=== PATIENT | female | born 1990 | race Caucasian/White ===

== ENCOUNTER → 2020-12-11 | Outpatient (CLI) | payer BC ==
--- NOTE | 2020-12-12 08:32 | CT ---
EXAMINATION TYPE: CT iac wo con DATE OF EXAM: 12/11/2020 COMPARISON: None HISTORY: Possible right cholesteatoma CT DLP: 142.7mGycm Automated exposure control for dose reduction was used. FINDINGS: The external auditory canals are patent bilaterally. Mastoid air cells show no evidence of abnormal opacification bilaterally. The middle ear ossicles are symmetric and unremarkable. There is no evidence of suspicious surrounding soft tissue density to suggest cholesteatoma. The scutum is preserved bilaterally. The cochlea and the semicircular canals are symmetric and unremarkable. Ves tibular aqueduct and internal carotid canal appear unremarkable. Temporomandibular joints are mainta ined bilaterally. IMPRESSION: No significant abnormality seen to account for patient's symptoms.
== END ==
LOC: RADCTMAIN 16:23
PROVIDERS: ATTEND Otolaryngology
DX: H93.19 Tinnitus, unspecified ear (principal)
CPT/HCPCS: 70480

== ENCOUNTER 2023-02-04 20:11 | Outpatient (CLI) | payer BC ==
[2023-02-04 21:12] LABS: Appearance,Urine Clear (Clear); Bilirubin,Urine Negative (Negative); Blood,Urine Negative (Negative); Glucose,Urine (UA) Negative (Negative); Ketones,Urine 2+ (Negative); Leukocyte Esterase,Urine Negative (Negative); Nitrite,Urine Negative (Negative); Protein,Urine Trace (Negative); Specific Gravity,Urine 1.023 (1.001-1.035); Urobilinogen,Urine <2.0 mg/dL (<2.0)
[2023-02-04 21:17] LABS: Color,Urine Yellow
[2023-02-04 22:52] VITALS: BP 128/66; PULSE 92; RESP 16; TEMP 97
--- NOTE | 2023-03-05 19:12 | P.MSEPDOC ---
Presenting Problems - Arrival Data Date of Arrival on Unit: 02/04/23 Time of Arrival on Unit: 20:11 Mode of Transport: Ambulatory - Complaint OB-Reason for Admission/Chief Complaint: Pain Comment: Patient presents to [facility] with complaint of lower right sided abdominal pain. that has been going on for two days and 1 episode of emesis prior to coming to triage. patient states it was a scant amount of bile. Medical History - Information : 1 Para: 0 Term: 0 : 0 Abortions: Spontaneous or Elective: 0 Number of Living Children: 0 - Gestational Age Gestational Age by KOREY (wks/days): 34 Weeks and 1 Days Review of Systems - Review of Systems Constitutional: No problems Breast: No problems ENT: No problems Cardiovascular: No problems Respiratory: No problems Gastrointestinal: No problems Genitourinary: No problems Musculoskeletal: No problems Neurological: No problems Skin: No problems Vital Signs - Temperature Temperature: 97.0 F Temperature Source: Oral - Pulse Right Brachial Pulse Rate: 92 Pulse Assessment Method: Automatic Cuff - Respirations Respiratory Rate: 16 Oxygen Delivery Method: Room Air - Blood Pressure Right Arm Blood Pressure: 128/66 Blood Pressure Mean: 86 Blood Pressure Source: Automatic Cuff Medical Screen Scoring - Assessment - Baby A Baseline FHR: 125 Heart Rate - NICHD Category: Category I (Normal) NST: Reactive Physician Notification - Physician Notified Physician Notified Date: 02/04/23 Physician Notified Time: 20:46 Physician: Barbara Gaytan - Notification Comment Comment: Dr. Kevin called with report for pt that presents to triage with right sided. lower abdominal pain that has been going on for 2 days and 1 episode of emesis. Pt. abdomen soft non tender, nst reactive, no contractions per palpation or toco. Pain. appears to be more ligament pain, pt has had minimal oral hydration, has not tried any. pain relief techniques at home. Orders recieved to send a u/a, if negative, pt may be. discharge home, rn to educate patient on at home comfort measures. 2128 U/A results reviewed patient to be discharged Maternal Triage Index - Maternal Triage Index Presenting for scheduled procedure w/no complaint: No - Stat/Priority 1 Stat Priority 1: No - Urgent/Priority 2 Urgent Priority 2: No - Prompt/Priority 3 Prompt Priority 3: No - Non-Urgent/Priority 4 Non-Urgent Priority 4: Yes Criteria Met for Priority 4: discomfort Disposition - Disposition OB Disposition: Discharge to home Discharge Date: 02/04/23 Discharge Time: 21:22 I agree with the RN Medical Screening Exam: Yes Case reviewed; plan agreed upon as documented in EMR&OBIX.: Yes Diagnosis: RELATED CONDITIONS, UNSPECIFIED, THIRD TRIMESTER
== END 2023-02-04 21:22 ==
LOC: FBPOP 20:11
PROVIDERS: ATTEND Obstetrics & Gynecology Obstetrics
DX: O26.893 Other specified pregnancy related conditions, third trimester (principal); R52 Pain, unspecified; Z3A.34 34 weeks gestation of pregnancy
CPT/HCPCS: 59025; 81003; 99213

== ENCOUNTER 2023-03-10 17:03 | Inpatient (IN) | payer BC ==
[2023-03-10] MEDS ORDERED: TRANEXAMIC 1,000 MG/100ML-NACL 1,000 MG in EMPTY BAG 1 BAG IV PRN (17:04)
[2023-03-10] MEDS ORDERED: LIDOCAINE 0.5% (PF) 5 MG/ML (50 ML SDV) SQ PRN (17:04)
[2023-03-10] MEDS ORDERED: DINOPROSTONE 10 MG INSERT.ER VAGINAL ONE (17:04)
[2023-03-10] MEDS ORDERED: OXYTOCIN 10 UNIT/ML 1 ML VIAL IM PRN (17:04)
[2023-03-10] MEDS ORDERED: miSOPROStoL 200 MCG TAB PO PRN (17:04)
[2023-03-10] MEDS ORDERED: TERBUTALINE 1 MG/ML VIAL SQ PRN (17:04)
[2023-03-10] MEDS ORDERED: CARBOPROST TROMETHAMINE 250 MCG/ML 1 ML AMP IM PRN (17:04)
[2023-03-10] MEDS ORDERED: METHYLERGONOVINE 0.2 MG/ML 1 ML AMP IM PRN (17:04)
[2023-03-10] MEDS ORDERED: OXYTOCIN 30 UNITS/500 ML NS 30 UNIT in SALINE 1 500ML.BAG IV SCH (17:15)
[2023-03-10] MEDS ORDERED: NALBUPHINE 10 MG/ML (10 ML MDV) IV PRN (18:02)
[2023-03-10 18:07] LABS: Basophils % (A) 0 %; Eosinophils # (A) 0.2 k/uL (0-0.7); Eosinophils % (A) 2 %; HCT 37.2 % (34.0-46.0); HGB 12.3 gm/dL (11.4-16.0); Lymphocytes % (A) 20 %; MCH 29.1 pg (25.0-35.0); MCHC 33.1 g/dL (31.0-37.0); MCV 87.9 fL (80.0-100.0); Mean Platelet Volume 10.2; Monocytes # (A) 0.5 k/uL (0-1.0); Monocytes % (A) 5 %; Neutrophils # (A) 7.2 k/uL (1.3-7.7); Neutrophils % (A) 73 %; Platelet Count 213 k/uL (150-450); RBC 4.23 m/uL (3.80-5.40); RDW 14.3 % (11.5-15.5)
[2023-03-11] MEDS: LACTATED RINGERS 1,000 ML IV SCH ×6 (06:42→20:45)
[2023-03-11] MEDS ORDERED: CITRIC ACID-SODIUM CITRATE 15 ML CUP PO ONE ×2 (16:52→16:58)
[2023-03-11] MEDS ORDERED: miSOPROStoL 200 MCG TAB PO PRN ×2 (16:52→16:58)
[2023-03-11] MEDS ORDERED: METHYLERGONOVINE 0.2 MG/ML 1 ML AMP IM PRN ×2 (16:52→16:58)
[2023-03-11] MEDS ORDERED: TRANEXAMIC 1,000 MG/100ML-NACL 1,000 MG in EMPTY BAG 1 BAG IV PRN ×2 (16:52→16:58)
[2023-03-11] MEDS ORDERED: CARBOPROST TROMETHAMINE 250 MCG/ML 1 ML AMP IM PRN ×2 (16:52→16:58)
[2023-03-11] MEDS ORDERED: OXYTOCIN 10 UNIT/ML 1 ML VIAL IM PRN ×2 (16:52→16:58)
[2023-03-11] MEDS ORDERED: ceFAZolin 3 GM in SODIUM CHLORIDE 0.9% 100 ML IVPB ONE (16:58)
[2023-03-11] MEDS ORDERED: diphenhydrAMINE 50 MG/ML 1 ML VIAL ONE (17:00)
[2023-03-11] MEDS ORDERED: NALBUPHINE 10 MG/ML (10 ML MDV) ONE (17:00)
[2023-03-11] MEDS ORDERED: ONDANSETRON 4 MG/2 ML VIAL ONE (17:00)
[2023-03-11] MEDS ORDERED: OXYTOCIN 30 UNITS/500 ML NS BAG IV ONE (17:00)
[2023-03-11] MEDS ORDERED: PHENYLEPHRINE-0.9% NACL SYG 1,000 MCG/10 ML SYRINGE ONE (17:00)
[2023-03-11] MEDS ORDERED: OXYTOCIN 30 UNITS/500 ML NS 30 UNIT in SALINE 1 500ML.BAG IV SCH (17:00)
[2023-03-11] MEDS ORDERED: OXYTOCIN 10 UNIT/ML 1 ML VIAL ONE (17:00)
[2023-03-11] MEDS ORDERED: MORPHINE SULFATE (PF) 0.3 MG/0.3 ML SYR ONE (17:00)
--- NOTE | 2023-03-11 17:59 | P.OP ---
Date of Procedure: 03/11/23 Preoperative Diagnosis: IUP at 39 weeks, borderline low amniotic fluid index, maternal request for primary secondary to arrest of descent and dilation Postoperative Diagnosis: same Procedure(s) Performed: Primary low transverse section Anesthesia: spinal Surgeon: Radha Kevin Stevedoring Supervisor #1: Clark Huerta Estimated Blood Loss (ml): 375 IV fluids (ml): 600 Urine output (ml): 100 Pathology: other (Placenta) Condition: stable Disposition: observation Indications for Procedure: 32-year-old 1 para 0 that presented to labor and delivery last evening at 39 weeks of gestation for Cervidil induction of labor secondary to borderline low amniotic fluid index noted in the office. Patient was admitted to labor and delivery and noted minimal cervical telephone exchange operator the evening. Patient was noted to be 1/70 in the morning amniotomy is performed and scant clear fluid was obtained. Patient was begun on Pitocin for augmentation of labor. Patient made no change throughout the day. After approximately 8 hours of no change patient elected primary . Patient was counseled on risks of versus continuing. Concerns for malpresentation in occiput posterior presentation were discussed. Patient stated she wished to proceed with primary . Operative Findings: Normal uterus tubes and ovaries were appreciated. Viable male delivered at 1728, weight of 6 lbs. 9 oz., Apgars of 9 and 9 at one and 5 minutes respectively. Description of Procedure: The patient was prepped and draped in the usual fashion after spinal anesthesia was administered by the anesthesia department. A Pfannenstiel incision was made and extended of the abdominal cavity without difficulty. The bladder peritoneum was elevated and incised and reflected distally. A 2 cm incision was made in the transverse plane of the lower uterine segment to enter the uterus at which time clear fluid was noted. The incision was extended in both directions using the bandage scissors. The head was encountered within the field and delivered up and through the incision where the nose and mouth were thoroughly suctioned. Remainder of the infant was delivered onto the surgical field where the cord was doubly clamped, cut, and the was passed for resuscitative measures with weight and Apgars as noted above. The placenta was delivered manually, intact, and was grossly normal with a grossly normal three-vessel cord. The uterus was exteriorized and the interior cavity of the uterus swept of any remaining placental and membranous fragments with a laparotomy sponge. The margins of the incision were grasped with Allis clamps and the incision closed in 2 layers. First layer was a running locking layer of 0 Vicryl from margin to margin followed by a second layer of imbricating 0 Vicryl from margin to margin. Any small points of bleeding were then made hemostatic with the Bovie. Once hemostasis was achieved, the posterior cul-de-sac was suctioned with a guard and the uterine and ovarian findings are as noted above. The uterus was replaced within the abdominal cavity and the gutters swept of any remaining blood fluid or clot. The incision was again reexamined and hemostasis was noted to be excellent. Any small point of bleeding were made hemostatic with the Bovie. Once hemostasis was achieved the parietal peritoneum was loosely reapproximated. The layer of muscles were examined and made hemostatic with the Bovie. Attention was then turned to the fascia which was closed with 2 running stitches of 0 Vicryl proceeding from the lateral margins to the midpoint. The subcutaneous tissues were irrigated, made hemostatic with the Bovie, and reapproximated with a running stitch of 30 Vicryl. The skin was reapproximated with 4-0 Vicryl. Estimated blood loss for the case was approximately 345 mL. All sponge instrument and needle counts are correct. There were no complications. The patient tolerated the procedure well and proceeded to the recovery room in stable condition. Both mother and are resting comfortably in recovery.
--- NOTE | 2023-03-11 18:00 | P.HPOB ---
History of Present Illness H&P Date: 03/10/23 Chief Complaint: IUP at 39-0/7 weeks, low GAURANG This is a 32-year-old 1 para 0 at 39 0/7 weeks that presents to labor and delivery from the office after amniotic fluid index was noted to be on the low end of normal at 7. Patient has been receiving routine care which has been essentially uncomplicated. Patient has an unfavorable cervix of fingertip/70/-3 station vertex presentation was noted on ultrasound today. Patient does note good movement and had reassuring testing the office today. On bloodwork this patient is a blood type of A+, rubella status immune, hep B surface antigen negative, HIV negative, RPR is nonreactive, group beta s trep cultures are negative. Review of Systems Constitutional: Denies chills, Denies fatigue, Denies fever Ears, nose, mouth and throat: Denies headache Cardiovascular: Reports leg edema Respiratory: Denies dyspnea Gastrointestinal: Denies constipation, Denies diarrhea, Denies nausea, Denies vomiting Genitourinary: Reports Past Medical History Past Medical History: No Reported History History of Any Multi-Drug Resistant Organisms: None Reported Past Surgical History: Orthopedic Surgery Additional Past Surgical History / Comment(s): knee x2 Past Anesthesia/Blood Transfusion Reactions: Previous Problems w/ Anesthesia Additional Past Anesthesia/Blood Transfusion Reaction / Comment(s): pt states she was very aggresive when she woke from anesthesia Past Psychological History: Anxiety, Depression Smoking Status: Never smoker Past Alcohol Use History: None Reported Past Drug Use History: None Reported - Past Family History Father Family Medical History: COPD, Hypertension Brother(s) Family Medical History: Seizure Disorder Medications and Allergies Home Medications Medication Instructions Recorded Confirmed Type Famotidine [Pepcid] 20 mg PO DAILY 02/04/23 03/10/23 History Vit No.179/Iron/Folic 1 tab PO DAILY 02/04/23 03/10/23 History [ Tablet] Allergies Allergy/AdvReac Type Severity Reaction Status Date / Time No Known Allergies Allergy Verified 02/04/23 20:23 Exam Osteopathic Statement: *. No significant issues noted on an osteopathic structural exam other than those noted in the History and Physical/Consult. 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 heart tones are noted to be category 1 and she is not makayla. Results Result Diagrams: 03/10/23 17:47 Assessment and Plan (1) 39 weeks gestation of Current Visit: Yes Status: Acute Code(s): Z3A.39 - 39 WEEKS GESTATION OF SNOMED Code(s): 18589587 (2) GAURANG (amniotic fluid index) borderline low Current Visit: Yes Status: Acute Code(s): O28.8 - OTHER ABNORMAL FINDINGS ON SCREENING OF MOTHER SNOMED Code(s): 93402413 Plan: 32-year-old at 39-0/7 weeks that presents for induction of labor secondary to borderline low GAURANG of 7. Patient is admitted and Cervidil is placed without difficulty. Patient is offered options for analgesia including Stadol, nitrous, epidural. She will consider. Plan Hep-Lock overnight, continuous monitoring.
[2023-03-11] MEDS ORDERED: NALOXONE 0.4 MG/ML 1 ML VIAL IV PRN (18:15)
[2023-03-11] MEDS ORDERED: METOCLOPRAMIDE 5 MG/ML 2 ML VIAL IVP PRN (18:15)
[2023-03-11] MEDS ORDERED: SIMETHICONE 80 MG CHEWABLE PO PRN (18:15)
[2023-03-11] MEDS ORDERED: diphenhydrAMINE 25 MG CAP PO PRN (18:15)
[2023-03-11] MEDS ORDERED: diphenhydrAMINE 50 MG/ML 1 ML VIAL IVP PRN ×2 (18:15)
[2023-03-11] MEDS ORDERED: diphenhydrAMINE 50 MG CAP PO PRN (18:15)
[2023-03-11] MEDS ORDERED: ONDANSETRON 4 MG/2 ML VIAL IVP PRN (18:15)
[2023-03-11] MEDS ORDERED: ZOLPIDEM 5 MG TAB PO PRN (18:15)
[2023-03-11] MEDS: ACETAMINOPHEN IV (For NPO) 1,000 MG in EMPTY BAG 1 BAG IVPB SCH (20:45)
[2023-03-11] MEDS: SENNOSIDES-DOCUSATE SODIUM 1 EACH TAB PO SCH (20:46)
[2023-03-11] MEDS: ACETAMINOPHEN TAB 500 MG TAB PO SCH (20:53)
[2023-03-12] MEDS: IBUPROFEN 600 MG TAB PO SCH ×5 (00:26→23:58)
[2023-03-12] MEDS: IBUPROFEN IV 800 MG in SODIUM CHLORIDE 0.9% 250 ML IV SCH ×2 (00:42→06:40)
[2023-03-12] MEDS: ACETAMINOPHEN TAB 500 MG TAB PO SCH ×4 (03:04→21:45)
[2023-03-12] MEDS: ACETAMINOPHEN IV (For NPO) 1,000 MG in EMPTY BAG 1 BAG IVPB SCH (03:09)
[2023-03-12 06:18] LABS: Basophils % (A) 0 %; Eosinophils # (A) 0.1 k/uL (0-0.7); Eosinophils % (A) 1 %; HCT 34.3 % (34.0-46.0); HGB 10.8 gm/dL (11.4-16.0); Lymphocytes # (A) 2.2 k/uL (1.0-4.8); Lymphocytes % (A) 18 %; MCH 27.4 pg (25.0-35.0); MCHC 31.5 g/dL (31.0-37.0); MCV 87.2 fL (80.0-100.0); Mean Platelet Volume 9.5; Monocytes # (A) 0.7 k/uL (0-1.0); Monocytes % (A) 6 %; Neutrophils # (A) 9.2 k/uL (1.3-7.7); Neutrophils % (A) 74 %; Platelet Count 184 k/uL (150-450); RBC 3.93 m/uL (3.80-5.40); RDW 14.7 % (11.5-15.5); WBC 12.4 k/uL (3.8-10.6)
--- NOTE | 2023-03-12 08:25 | P.PN ---
Progress Note - Text Progress Note Date: 03/12/23 (5249) Anesthesia Postop day 1 Subjective: Status Post section with Duramorph. Patient seen and examined. Doing well without complaint. VAS 2 out of 10. No nausea or vomiting. Mild pruritus tolerable.. Afebrile. Gross lower extremity strength intact. Without apparent anesthetic complications. Objective: Vital signs reviewed Heart: Regular Rate Lungs: Good chest excursion Abdomen: Appears nondistended Assessment: Status post with Duramorph postop day 1 Plan: Continue current care with your medical management. Anticipated and the Duramorph section around time today. You may see increased pain needs around this time.
[2023-03-12] MEDS ORDERED: PRENATAL VIT-IRON-FOLIC ACID 1 EACH TABLET PO SCH (09:00)
[2023-03-12] MEDS: SENNOSIDES-DOCUSATE SODIUM 1 EACH TAB PO SCH ×2 (10:39→19:50)
[2023-03-12] MEDS: LACTATED RINGERS 1,000 ML IV SCH (10:40)
--- NOTE | 2023-03-12 13:09 | P.PNOBGPC ---
Subjective - Subjective Principal diagnosis: Postop day 1 low transverse section Interval history: Patient is doing well this morning, she is involuting and voiding without difficulty, she denies nausea or vomiting. She states her pain is well- controlled. Her lochia is minimal. Patient reports: Reports appetite normal, Reports voiding normally, Reports pain well controlled, Reports ambulating normally [place]: doing well Objective - Vital Signs Latest vital signs: Vital Signs Temp Pulse Resp BP Pulse Ox 03/12/23 09:30 98.3 F 64 16 104/71 97 03/12/23 04:00 98.3 F 64 16 122/60 98 03/12/23 00:00 98.1 F 56 L 16 118/77 97 03/11/23 20:00 96.8 F L 62 16 125/64 98 03/11/23 19:30 66 16 134/68 97 03/11/23 19:00 97 F L 71 16 120/57 97 03/11/23 18:45 56 L 14 122/58 98 03/11/23 18:30 57 L 16 123/58 95 03/11/23 18:15 82 16 123/58 97 03/11/23 18:00 97.0 F L 71 17 124/57 98 Intake and Output 03/11/23 03/12/23 03/12/23 22:59 06:59 14:59 Intake Total 22.6 200 Output Total 735 400 800 Balance -712.4 -200 -800 Intake: Intake, IV Titration 22.6 Amount Oxytocin 30 Units/500 ml 22.6 Ns 30 unit In Saline 1 500ml.bag @ Per Protocol IV .Q0M [facility] Rx#:[id number] Oral 200 Output: Urine 300 400 800 Output, Quantitative 435 Blood Loss Other: Voiding Method Indwelling Catheter Indwelling Catheter - Exam Extremities: Present: normal, edema Abdomen: Present: normal appearance, soft Incision: Present: normal, dry, intact Uterus: Present: normal, firm - Labs Labs: Abnormal Lab Results - Last 24 Hours (Table) 03/12/23 Range/Units 05:14 WBC 12.4 H (3.8-10.6) k/uL Hgb 10.8 L (11.4-16.0) gm/dL Neutrophils # 9.2 H (1.3-7.7) k/uL Assessment and Plan (1) 39 weeks gestation of Current Visit: Yes Status: Acute Code(s): Z3A.39 - 39 WEEKS GESTATION OF SNOMED Code(s): 44493409 (2) GAURANG (amniotic fluid index) borderline low Current Visit: Yes Status: Acute Code(s): O28.8 - OTHER ABNORMAL FINDINGS ON SCREENING OF MOTHER SNOMED Code(s): 59565070 Plan: 32-year-old G1 now P1 status post primary section for arrest of descent and dilation and maternal request. Patient is doing well postoperatively will continue routine postoperative care and anticipate discharge home tomorrow.
[2023-03-13 01:19] VITALS: RESP 16
[2023-03-13] MEDS: ACETAMINOPHEN TAB 500 MG TAB PO SCH (03:51)
[2023-03-13] MEDS: IBUPROFEN 600 MG TAB PO SCH (06:03)
[2023-03-13 09:12] VITALS: BP 109/73; PULSE 84; TEMP 98.9
--- NOTE | 2023-03-13 11:40 | P.DS ---
Providers Date of admission: 03/10/23 17:03 Expected date of discharge: 03/13/23 Attending physician: Radha Kevin Primary care physician: Stated None - Discharge Diagnosis(es) (1) 39 weeks gestation of Current Visit: Yes Status: Acute (2) GAURANG (amniotic fluid index) borderline low Current Visit: Yes Status: Acute (3) Arrest of dilation, delivered, current hospitalization Current Visit: Yes Status: Acute (4) S/P section Current Visit: Yes Status: Acute Hospital Course: This is a 32-year-old 1 now para 1 that presented to labor and delivery on 03/10 for induction of labor secondary to borderline low amniotic fluid index. Patient had a Cervidil placed and was noted to be fingertip dilated. Patient noted some contractions in the evening in the morning was noted to be 1 cm dilated. Amniotomy was performed after Cervidil had been removed and clear fluid was obtained. Patient began Pitocin for augmentation of labor. Patient was monitored through the day with good contractions and no cervical change was appreciated throughout the day. heart tones were noted to be category 1 throughout labor. Concerns for malpresentation/occiput posterior presentation were discussed with patient. Patient elected primary . Patient was taken back to the operating suite where a primary was performed that difficulty. For full details on the please see the operative report. Patient delivered a viable male at 1728, weight of 6 lbs. 9 oz., Apgars of 9 and 9 at one and 5 minutes respectively. Patient's course is uneventful uneventful. On this day #2 she is ambulating and voiding without difficulty. She is tolerating a regular diet without nausea or v omiting. She states her pain is well-controlled. She denies concerns. She was like discharge home today. Patient Condition at Discharge: Good Plan - Discharge Summary Discharge Rx Participant: Yes New Discharge Prescriptions: No Action Famotidine [Pepcid] 20 mg PO DAILY Vit No.179/Iron/Folic [ Tablet] 1 tab PO DAILY Discharge Medication List Famotidine [Pepcid] 20 mg PO DAILY 02/04/23 [History] Vit No.179/Iron/Folic [ Tablet] 1 tab PO DAILY 02/04/23 [History] Follow up Appointment(s)/Referral(s): Radha Kevin DO [Doctor of Osteopathic Medicine] - 2 Weeks Patient Instructions/Handouts: (DC) Activity/Diet/Wound Care/Special Instructions: No tub baths or intercourse until 6 weeks post . Postoperative care of incision is discussed. [id number] ibuprofen 600 mg every 6 hours as needed for pain. Patient is to call the office to make a routine postoperative appointment in 2 weeks. Should she have any concerns presents appointment she is urged to call the office. Discharge Disposition: HOME SELF-CARE
== END 2023-03-13 13:30 | disposition home or self-care (01) | DRG 788 ==
LOC: 4FBP 17:03
PROVIDERS: ADMIT Obstetrics & Gynecology Obstetrics; ATTEND Obstetrics & Gynecology Obstetrics
PROC: 10907ZC Drainage of Amniotic Fluid, Therapeutic from Products of Conception, Via Natural or Artificial Opening (ICD-10-PCS; 2023-03-11)
PROC: 3E0P7VZ Introduction of Hormone into Female Reproductive, Via Natural or Artificial Opening (ICD-10-PCS; 2023-03-11)
PROC: 3E033VJ Introduction of Other Hormone into Peripheral Vein, Percutaneous Approach (ICD-10-PCS; 2023-03-11)
PROC: 10D00Z1 Extraction of Products of Conception, Low, Open Approach (ICD-10-PCS; principal; 2023-03-11 06:00)
DX: O62.0 Primary inadequate contractions (principal); O62.1 Secondary uterine inertia; L29.9 Pruritus, unspecified; F41.9 Anxiety disorder, unspecified; O99.344 Other mental disorders complicating childbirth; Z37.0 Single live birth; Z3A.39 39 weeks gestation of pregnancy; Z82.0 Family history of epilepsy and other diseases of the nervous system; Z82.49 Family history of ischemic heart disease and other diseases of the circulatory system; Z82.5 Family history of asthma and other chronic lower respiratory diseases
CPT/HCPCS: 85025; 86850; 86900; 86901

== ENCOUNTER 2024-12-05 08:00 | Inpatient (IN) | payer BC, OTHER ==
[2024-12-05] MEDS ORDERED: CARBOPROST TROMETHAMINE 250 MCG/ML 1 ML AMP IM PRN (14:38)
[2024-12-05] MEDS ORDERED: METHYLERGONOVINE 0.2 MG/ML 1 ML AMP IM PRN (14:38)
[2024-12-05] MEDS ORDERED: OXYTOCIN 10 UNIT/ML 1 ML VIAL IM PRN (14:38)
[2024-12-05] MEDS ORDERED: TRANEXAMIC 1,000 MG/100ML-NACL 1,000 MG in EMPTY BAG 1 BAG IV PRN (14:38)
[2024-12-05] MEDS ORDERED: miSOPROStoL 200 MCG TAB PO PRN (14:38)
[2024-12-05 15:12] LABS: Basophils % (A) 0 %; Eosinophils # (A) 0.1 k/uL (0-0.7); Eosinophils % (A) 1 %; HCT 36.5 % (34.0-46.0); Lymphocytes # (A) 2.3 k/uL (1.0-4.8); Lymphocytes % (A) 20 %; MCH 27.6 pg (25.0-35.0); MCHC 32.9 g/dL (31.0-37.0); MCV 84.1 fL (80.0-100.0); Mean Platelet Volume 8.5; Monocytes # (A) 0.6 k/uL (0-1.0); Monocytes % (A) 5 %; Neutrophils # (A) 8.4 k/uL (1.3-7.7); Neutrophils % (A) 73 %; Platelet Count 227 k/uL (150-450); RBC 4.34 m/uL (3.80-5.40); RDW 14.3 % (11.5-15.5); WBC 11.6 k/uL (3.8-10.6)
[2024-12-05] MEDS: LACTATED RINGERS 1,000 ML IV ONE (15:35)
[2024-12-05] MEDS: CITRIC ACID-SODIUM CITRATE 15 ML CUP PO ONE (15:36)
[2024-12-05] MEDS: ceFAZolin 3 GM in SODIUM CHLORIDE 0.9% 100 ML IVPB ONE (15:37)
[2024-12-05] MEDS ORDERED: MORPHINE SULFATE (PF) 0.3 MG/0.3 ML SYR ONE (16:20)
[2024-12-05] MEDS ORDERED: ONDANSETRON 4 MG/2 ML VIAL ONE (16:20)
[2024-12-05] MEDS ORDERED: PHENYLEPHRINE-0.9% NACL SYG 1,000 MCG/10 ML SYRINGE ONE (16:20)
[2024-12-05] MEDS ORDERED: OXYTOCIN 30 UNITS/500 ML NS BAG IV ONE (16:20)
[2024-12-05] MEDS ORDERED: NALBUPHINE (ANES) 10 MG/ML - 1 ML AMP ONE (16:20)
[2024-12-05] MEDS ORDERED: METOCLOPRAMIDE 5 MG/ML 2 ML VIAL IVP PRN (17:09)
[2024-12-05] MEDS ORDERED: ONDANSETRON 4 MG/2 ML VIAL IVP PRN (17:09)
[2024-12-05] MEDS ORDERED: diphenhydrAMINE 50 MG/ML 1 ML VIAL IVP PRN (17:09)
[2024-12-05] MEDS ORDERED: ZOLPIDEM 5 MG TAB PO PRN (17:09)
[2024-12-05] MEDS ORDERED: SIMETHICONE 80 MG CHEWABLE PO PRN (17:09)
[2024-12-05] MEDS ORDERED: NALOXONE 0.4 MG/ML 1 ML VIAL IV PRN (17:09)
[2024-12-05] MEDS ORDERED: diphenhydrAMINE 25 MG CAP PO PRN (17:09)
--- NOTE | 2024-12-05 17:15 | P.OP ---
Date of Procedure: 12/05/24 Preoperative Diagnosis: IUP @ 39 2/7 weeks h/o section x1 desires Repeat Postoperative Diagnosis: same Procedure(s) Performed: Elective repeat section Anesthesia: spinal Surgeon: Radha Kevin Motor Racer #1: Clark Huerta Estimated Blood Loss (ml): 306 IV fluids (ml): 1,500 Urine output (ml): 200 (clear yellow) Pathology: none sent Condition: stable Disposition: observation Indications for Procedure: History of section x 1, desires repeat Operative Findings: Viable male infant delivered at 1640, weight of 6 pounds 9 ounces, Apgars of 9 and 9 at 1 and 5 minutes respectively Description of Procedure: The patient was prepped and draped in the usual fashion after spinal anesthesia was administered by the anesthesia department. A Pfannenstiel incision was made and extended of the abdominal cavity without difficulty. The bladder peritoneum was elevated and incised and reflected distally. A 2 cm incision was made in the transverse plane of the lower uterine segment to enter the uterus at which time clear fluid was noted. The incision was extended in both directions using the bandage scissors. The head was encountered within the field and delivered up and through the incision where the nose and mouth were thoroughly suctioned. Remainder of the infant was delivered onto the surgical field where the cord was doubly clamped, cut, and the was passed for resuscitative measures with weight and Apgars as noted above. The placenta was delivered manually, intact, and was grossly normal with a grossly normal three-vessel cord. The uterus was exteriorized and the interior cavity of the uterus swept of any remaining placental and membranous fragments with a laparotomy sponge. The margins of the incision were grasped with Allis clamps and the incision closed in 2 layers. First layer was a running locking layer of 0 vicryl from margin to margin followed by a second layer of imbricating 0 vicryl from margin to margin. Any small points of bleeding were then made hemostatic with the Bovie. Once hemostasis was achieved, the posterior cul-de-sac was suctioned with a guard and the uterine and ovarian findings are as noted above. The uterus was replaced within the abdominal cavity and the gutters swept of any remaining blood fluid or clot. The incision was again reexamined and hemostasis was noted to be excellent. Any small point of bleeding were made hemostatic with the Bovie. Once hemostasis was achieved the parietal peritoneum was loosely reapproximated. The layer of muscles were examined and made hemostatic with the Bovie. Attention was then turned to the fascia which was closed with 2 running stitches of 0 Vicryl proceeding from the lateral margins to the midpoint. The subcutaneous tissues were irrigated, made hemostatic with the Bovie, and reapproximated with a running stitch of 30 plain catgut. The skin was reapproximated with 4-0 vicryl. Estimated blood loss for the case was approximately 306 mL. All sponge instrument and needle counts are correct. There were no complications. The patient tolerated the procedure well and proceeded to the recovery room in stable condition. Both mother and infant are resting comfortably in recovery.
--- NOTE | 2024-12-05 17:17 | P.HPOB ---
History of Present Illness H&P Date: 12/05/24 Chief Complaint: Term , history of section This is a 34-year-old 2 para 1-0-0-1 that presents to labor and delivery at 39-2/7 weeks for scheduled repeat section. Patient has been receiving routine care which has been uncomplicated. Patient has a prior history of section and desires repeat. On blood work this patient is a blood type of A+, rubella status immune, hepatitis B surface engine negative, HIV negative, RPR nonreactive, hepatitis C nonreactive, grew beta strep cultures negative. Review of Systems Constitutional: Denies chills, Denies fatigue, Denies fever Ears, nose, mouth and throat: Denies headache Cardiovascular: Reports leg edema Respiratory: Denies dyspnea Gastrointestinal: Denies constipation, Denies diarrhea, Denies nausea, Denies vomiting Genitourinary: Reports Past Medical History Past Medical History: No Reported History History of Any Multi-Drug Resistant Organisms: None Reported Past Surgical History: Section, Orthopedic Surgery Additional Past Surgical History / Comment(s): knee x2 Past Anesthesia/Blood Transfusion Reactions: Previous Problems w/ Anesthesia Additional Past Anesthesia/Blood Transfusion Reaction / Comment(s): pt states she was very aggresive when she woke from anesthesia Past Psychological History: Anxiety, Depression Smoking Status: Never smoker Past Alcohol Use History: None Reported Past Drug Use History: None Reported - Past Family History Father Family Medical History: COPD, Hypertension Brother(s) Family Medical History: Seizure Disorder Medications and Allergies Home Medications Medication Instructions Recorded Confirmed Type Famotidine [Pepcid] 20 mg PO DAILY 02/04/23 12/05/24 History Vit No.179/Iron/Folic 1 tab PO DAILY 02/04/23 12/05/24 History [ Tablet] Levothyroxine Sodium [Synthroid] 25 mcg PO DAILY 12/05/24 12/05/24 History Allergies Allergy/AdvReac Type Severity Reaction Status Date / Time No Known Allergies Allergy Verified 12/05/24 14:37 Exam Osteopathic Statement: *. No significant issues noted on an osteopathic structural exam other than those noted in the History and Physical/Consult. Vital Signs Temp Pulse Resp BP Pulse Ox 12/05/24 14:36 97.3 F L 68 16 130/79 97 Intake and Output 12/05/24 12/05/24 12/05/24 06:59 14:59 22:59 Other: Weight 122.47 kg Targeted physical exam is performed this date General Is well-nourished well- developed female in no acute distress, breathing is nonlabored, heart has a regular rhythm, abdomen is gravid, cervical exam is deferred, heart tones are noted to be category 1 and she is not makayla. Results Result Diagrams: 12/05/24 14:50 Abnormal Lab Results - Last 24 Hours (Table) 12/05/24 Range/Units 14:50 WBC 11.6 H (3.8-10.6) k/uL Neutrophils # 8.4 H (1.3-7.7) k/uL Assessment and Plan (1) History of section Current Visit: Yes Status: Acute Code(s): Z98.891 - HISTORY OF UTERINE SCAR FROM PREVIOUS SURGERY SNOMED Code(s): 216991231 (2) 39 weeks gestation of Current Visit: No Status: Acute Code(s): Z3A.39 - 39 WEEKS GESTATION OF SNOMED Code(s): 98926417 Plan: Admit to labor and delivery for scheduled repeat section Procedure is reviewed and all questions are answered, informed consent is obtained. Anesthesia into see patient, will proceed to operating suite
[2024-12-05] MEDS: ACETAMINOPHEN IV (For NPO) 1,000 MG in EMPTY BAG 1 BAG IVPB ONE (17:48)
[2024-12-05] MEDS: LACTATED RINGERS 1,000 ML IV SCH (18:03)
[2024-12-05] MEDS: diphenhydrAMINE 50 MG/ML 1 ML VIAL IVP PRN (19:06)
[2024-12-05] MEDS: IBUPROFEN IV 800 MG in SODIUM CHLORIDE 0.9% 250 ML IV ONE (19:33)
[2024-12-05] MEDS: SENNOSIDES-DOCUSATE SODIUM 1 EACH TAB PO SCH (21:49)
[2024-12-06] MEDS: ACETAMINOPHEN TAB 500 MG TAB PO SCH (01:44)
[2024-12-06] MEDS: diphenhydrAMINE 50 MG CAP PO PRN (01:45)
[2024-12-06] MEDS: IBUPROFEN 800 MG TAB PO SCH (05:28)
[2024-12-06] MEDS: LEVOTHYROXINE 25 MCG TAB PO SCH (05:29)
[2024-12-06 06:59] LABS: Basophils % (A) 0 %; Eosinophils # (A) 0.1 k/uL (0-0.7); Eosinophils % (A) 1 %; HCT 36.9 % (34.0-46.0); HGB 11.8 gm/dL (11.4-16.0); Hypochromasia Slight; Lymphocytes # (A) 2.8 k/uL (1.0-4.8); Lymphocytes % (A) 24 %; MCH 27.5 pg (25.0-35.0); MCHC 32.1 g/dL (31.0-37.0); MCV 85.8 fL (80.0-100.0); Mean Platelet Volume 8.6; Monocytes # (A) 0.6 k/uL (0-1.0); Monocytes % (A) 5 %; Neutrophils # (A) 8.1 k/uL (1.3-7.7); Neutrophils % (A) 69 %; Platelet Count 211 k/uL (150-450); RDW 14.5 % (11.5-15.5); WBC 11.8 k/uL (3.8-10.6)
--- NOTE | 2024-12-06 07:49 | P.PN ---
Progress Note - Text Adequate analgesia. No anesthetic complication.
[2024-12-06] MEDS: PRENATAL VIT-IRON-FOLIC ACID 1 EACH TABLET PO SCH (08:54)
--- NOTE | 2024-12-06 12:45 | P.PNOBGPC ---
Subjective - Subjective Principal diagnosis: Postop day 1, repeat section Interval history: Patient is doing well postoperatively. She is ambulating without difficulty. She states her pain is well-controlled. Her lochia is minimal. She denies concerns. Patient reports: Reports appetite normal, Reports voiding normally, Reports pain well controlled, Reports ambulating normally : doing well Objective - Vital Signs Latest vital signs: Vital Signs Temp Pulse Resp BP Pulse Ox 12/06/24 05:15 98.4 F 65 16 110/74 98 12/05/24 21:15 97.3 F L 59 L 16 111/73 97 12/05/24 19:15 95.9 F L 65 16 141/90 100 12/05/24 19:00 61 16 132/61 100 12/05/24 18:45 57 L 16 145/62 99 12/05/24 18:30 62 16 116/70 98 12/05/24 18:15 60 16 118/67 97 12/05/24 18:00 56 L 16 111/59 95 12/05/24 17:45 65 16 112/58 96 12/05/24 17:30 80 16 134/60 96 12/05/24 17:15 96.9 F L 71 16 105/58 96 12/05/24 14:36 97.3 F L 68 16 130/79 97 Intake and Output 12/05/24 12/06/24 12/06/24 22:59 06:59 14:59 Output Total 392 700 800 Balance -392 -700 -800 Output: Urine 700 800 Uretheral (Doe) 200 Output, Quantitative 392 Blood Loss Other: # Voids 1 - Exam Extremities: Present: normal, edema Abdomen: Present: normal appearance, soft Incision: Present: normal, dry, intact Uterus: Present: normal, firm - Labs Labs: Abnormal Lab Results - Last 24 Hours (Table) 12/05/24 12/06/24 Range/Units 14:50 06:07 WBC 11.6 H 11.8 H (3.8-10.6) k/uL Neutrophils # 8.4 H 8.1 H (1.3-7.7) k/uL Assessment and Plan (1) History of section Current Visit: Yes Status: Acute Code(s): Z98.891 - HISTORY OF UTERINE SCAR FROM PREVIOUS SURGERY SNOMED Code(s): 709291077 (2) 39 weeks gestation of Current Visit: No Status: Acute Code(s): Z3A.39 - 39 WEEKS GESTATION OF SNOMED Code(s): 51248607 (3) S/P section Current Visit: No Status: Acute Code(s): Z98.891 - HISTORY OF UTERINE SCAR FROM PREVIOUS SURGERY SNOMED Code(s): 908146399 Plan: Patient is doing well postoperatively. Continue routine postoperative care. Plan to remove bandage this evening. Anticipate discharge home tomorrow.
[2024-12-07 00:15] VITALS: RESP 16
[2024-12-07 08:11] VITALS: BP 112/74; PULSE 63; TEMP 97.8
--- NOTE | 2024-12-07 16:09 | P.DS ---
Providers Date of admission: 12/05/24 14:09 Expected date of discharge: 12/07/24 Attending physician: Radha Kevin Primary care physician: Stated None - Discharge Diagnosis(es) (1) History of section Current Visit: Yes Status: Acute (2) 39 weeks gestation of Current Visit: No Status: Acute (3) S/P section Current Visit: No Status: Acute Hospital Course: 34-year-old 2 now para 2 that presented to labor and delivery on 12/05. Patient had been receiving routine care with myself which had been essentially uncomplicated. Patient was admitted to labor and delivery for sc heduled repeat section. Patient was admitted to labor and delivery and taken back to the operating room where section was performed without difficulty. Patient delivered a viable male infant at 1640 on 12/05, weight of 6 pounds 9 ounces. Apgars of 9 and 9 at 1 and 5 minutes respectively. For full details on the please see the operative report. Patient's postoperative course has been uneventful. In this postoperative day #2 she is ambulating and voiding without difficulty. She is tolerating a regular diet without nausea or vomiting. She states her pain is well- controlled. She denies concerns. She would like discharge home. Patient Condition at Discharge: Good Plan - Discharge Summary New Discharge Prescriptions: No Action Famotidine [Pepcid] 20 mg PO DAILY Vit No.179/Iron/Folic [ Tablet] 1 tab PO DAILY Levothyroxine Sodium [Synthroid] 25 mcg PO DAILY Discharge Medication List Famotidine [Pepcid] 20 mg PO DAILY 02/04/23 [History] Vit No.179/Iron/Folic [ Tablet] 1 tab PO DAILY 02/04/23 [History] Levothyroxine Sodium [Synthroid] 25 mcg PO DAILY 12/05/24 [History] Follow up Appointment(s)/Referral(s): Radha Kevin DO [Doctor of Osteopathic Medicine] - 12/19/24 11:15 am (Post Appointment 01-16-2025 at 11:15am) Patient Instructions/Handouts: (DC), (GEN) Activity/Diet/Wound Care/Special Instructions: No tub baths or intercourse until 6 weeks . [id number] ibuprofen 600 mg or 3 tablets every 6 hours as needed for pain. Routine check at 6 weeks with 2-week postoperative check. Should patient have any concerns prior to this appointment she is urged to call the office. Discharge Disposition: HOME SELF-CARE
== END 2024-12-07 17:15 | disposition home or self-care (01) | DRG 540 ==
LOC: 4FBP 14:09
PROVIDERS: ADMIT Obstetrics & Gynecology Obstetrics; ATTEND Obstetrics & Gynecology Obstetrics
PROC: 10D00Z1 Extraction of Products of Conception, Low, Open Approach (ICD-10-PCS; principal; 2024-12-05 16:35)
DX: O34.211 Maternal care for low transverse scar from previous cesarean delivery (principal); O99.344 Other mental disorders complicating childbirth; F32.A Depression, unspecified; F41.9 Anxiety disorder, unspecified; Z37.0 Single live birth; Z3A.39 39 weeks gestation of pregnancy; Z79.890 Hormone replacement therapy; Z82.49 Family history of ischemic heart disease and other diseases of the circulatory system
CPT/HCPCS: 85025; 86850; 86900; 86901